=== PATIENT | female | born 1955 | race African-American/Black ===

== ENCOUNTER 2018-02-10 04:20 | Observation (INO) ==
[2018-02-10 05:23] LABS: Basophils % 0.4 % (0.0-0.8); Eosinophils # 0.1 10*3/uL (0.0-0.87); Eosinophils % 1.9 % (0.00-10.9); Hematocrit 35.2 VOL% (35.7-47.0); Hemoglobin 10.9 GM/DL (12.0-16.0); Immature Granulocytes % 0.3 %; Immature Granulocytes Absolute 0.02 #; Lymphocytes # 3.4 10*3/uL (1.4-4.0); Lymphocytes % 46.2 % (21.3-54.2); Mean Corpuscular Hemoglobin 23 PG (27-34); Mean Corpuscular Volume 74.1 FL (87-102); Monocytes # 0.3 10*3/uL (0.11-0.8); Monocytes % 4.2 % (1.7-12.7); Neutrophils # 3.4 10*3/uL (1.4-7.4); Platelet Count 186 T/CUMM (130-400); Red Blood Count 4.75 MC/CUMM (3.8-5.5); White Blood Count 7.3 T/CUMM (4-12)
[2018-02-10 05:51] LABS: Alanine Aminotransferase 17 U/L (13-56); Albumin 3.6 G/DL (3.4-5.0); Alkaline Phosphatase 97 U/L (45-117); Aspartate Amino Transferase 12 U/L (0-37); Blood Urea Nitrogen 14 MG/DL (7-18); Calcium 8.8 MG/DL (8.5-10.1); Glucose 128 MG/DL (74-106); Osmolality,Calculated 283.3 MOS/KG (273-304); Potassium 3.4 MMOL/L (3.5-5.1); Sodium 141 MMOL/L (136-145); Total Protein 7.3 G/DL (6.4-8.3); Troponin I Only < 0.015 NG/ML (0.00-0.045)
[2018-02-10] MEDS ORDERED: ENOXAPARIN 30 MG/0.3 ML SYRINGE SUBCUT STA (06:32)
[2018-02-10] MEDS ORDERED: ASPIRIN 325 MG TABLET PO STA (06:32)
[2018-02-10] MEDS ORDERED: ASPIRIN 325 MG TABLET ONE (06:33)
[2018-02-10] MEDS ORDERED: NITROGLYCERIN 2% OINT 1 INCH/GM PACK TOP ONE (06:33)
[2018-02-10] MEDS ORDERED: ENOXAPARIN 120 MG/0.8 ML SYRINGE SUBCUT ONE (06:34)
[2018-02-10] MEDS ORDERED: NITROGLYCERIN 2% OINT 1 INCH/GM PACK TOP STA (06:35)
[2018-02-10] MEDS ORDERED: ACETAMINOPHEN 325 MG TABLET PO PRN (07:34)
[2018-02-10] MEDS ORDERED: ONDANSETRON 4 MG/2 ML VIAL IV PRN (07:34)
[2018-02-10] MEDS ORDERED: DEXTROSE 50% 25 GM/50 ML VIAL IV PRN (07:34)
[2018-02-10] MEDS ORDERED: GLUCAGON 1 MG VIAL IM PRN (07:34)
[2018-02-10] MEDS ORDERED: ENOXAPARIN 40 MG/0.4 ML SYRINGE SUBCUT SCH (08:00)
[2018-02-10] MEDS: PANTOPRAZOLE 40 MG TABLET PO SCH (10:52)
[2018-02-10] MEDS: INSULIN LISPRO 100 UNIT/ML SUBCUT SCH ×3 (11:37→22:19)
[2018-02-10] MEDS ORDERED: CLORAZEPATE 7.5 MG TABLET PO ONE (22:00)
[2018-02-11 06:51] LABS: Basophils % 0.7 % (0.0-0.8); Eosinophils # 0.1 10*3/uL (0.0-0.87); Eosinophils % 2.5 % (0.00-10.9); Hematocrit 36.3 VOL% (35.7-47.0); Hemoglobin 11.3 GM/DL (12.0-16.0); Immature Granulocytes % 0.4 %; Immature Granulocytes Absolute 0.02 #; Lymphocytes # 2.8 10*3/uL (1.4-4.0); Lymphocytes % 49.9 % (21.3-54.2); Mean Corpuscular HGB Conc 31.1 GM/DL (32-36); Mean Corpuscular Hemoglobin 23 PG (27-34); Mean Corpuscular Volume 72.6 FL (87-102); Mean Platelet Volume 10.9 FL (9.6-12.0); Monocytes # 0.2 10*3/uL (0.11-0.8); Monocytes % 4.3 % (1.7-12.7); Neutrophils # 2.3 10*3/uL (1.4-7.4); Neutrophils % 42.2 % (38.7-73.9); Platelet Count 194 T/CUMM (130-400); Red Cell Distribution Width 15.3 % (9.3-17.3); White Blood Count 5.5 T/CUMM (4-12)
[2018-02-11 07:37] LABS: Calcium 8.9 MG/DL (8.5-10.1); Osmolality,Calculated 282.3 MOS/KG (273-304); Potassium 3.7 MMOL/L (3.5-5.1); Risk Ratio 4.98; Thyroid Stimulating Hormone 1.02 uIU/ml (0.358-3.74); VLDL CHOLESTEROL 59.8 MG/DL
[2018-02-11] MEDS ORDERED: ENOXAPARIN 40 MG/0.4 ML SYRINGE SUBCUT SCH (08:00)
[2018-02-11] MEDS ORDERED: traMADol 50 MG TABLET PO PRN (10:00)
[2018-02-11] MEDS ORDERED: ALBUTEROL 2.5 MG/3 ML NEB RESP TX PRN (10:00)
[2018-02-11] MEDS ORDERED: ASPIRIN EC 81 MG TABLET PO SCH (10:00)
[2018-02-11] MEDS ORDERED: DILTIAZEM CD 180 MG CAPSULE PO SCH (10:00)
[2018-02-11] MEDS: PANTOPRAZOLE 40 MG TABLET PO SCH (10:21)
[2018-02-11] MEDS: INSULIN LISPRO 100 UNIT/ML SUBCUT SCH ×2 (10:21→13:43)
[2018-02-11] MEDS ORDERED: MONTELUKAST 10 MG TABLET PO SCH (10:30)
[2018-02-11 13:18] VITALS: BP 189/87
[2018-02-11] MEDS ORDERED: glyBURIDE MICRONIZED 1.5 MG TABLET PO SCH (17:00)
[2018-02-11] MEDS ORDERED: ROSUVASTATIN 20 MG TABLET PO SCH (21:00)
[2018-02-11] MEDS ORDERED: PANTOPRAZOLE 40 MG TABLET PO SCH (21:00)
== END 2018-02-11 16:55 | disposition home or self-care (01) ==
LOC: N.EDINP 04:20 → N.ED 04:20 → N.4E 08:01
PROVIDERS: ADMIT Internal Medicine; ATTEND Internal Medicine

== ENCOUNTER 2019-12-01 11:05 | Inpatient (IN) ==
[2019-12-01] MEDS ORDERED: ASPIRIN 325 MG TABLET PO STA (11:59)
[2019-12-01 12:25] LABS: Basophils % 0.6 % (0.0-0.8); Eosinophils # 0.2 10*3/uL (0.0-0.87); Eosinophils % 3.9 % (0.00-10.9); Hematocrit 29.7 VOL% (35.7-47.0); Hemoglobin 8.6 GM/DL (12.0-16.0); Immature Granulocytes % 0.2 %; Immature Granulocytes Absolute 0.01 #; Lymphocytes # 1.8 10*3/uL (1.4-4.0); Lymphocytes % 38.4 % (21.3-54.2); Mean Corpuscular Volume 76.7 FL (87-102); Mean Platelet Volume 10.8 FL (9.6-12.0); Monocytes % 3.7 % (1.7-12.7); Neutrophils % 53.2 % (38.7-73.9); Platelet Count 199 T/CUMM (130-400); Red Blood Count 3.87 MC/CUMM (3.8-5.5); White Blood Count 4.6 T/CUMM (4-12)
[2019-12-01 13:01] LABS: Albumin 3.4 G/DL (3.4-5.0); Bilirubin,Total 0.6 MG/DL (0.2-1.0); Calcium 8.5 MG/DL (8.5-10.1); Osmolality,Calculated 284.5 MOS/KG (273-304); Total Protein 6.8 G/DL (6.4-8.3)
[2019-12-01] MEDS ORDERED: hydrALAZINE 20 MG/1 ML VIAL IV PRN (15:03)
[2019-12-01] MEDS ORDERED: DOCUSATE SODIUM 100 MG CAPSULE PO PRN (15:03)
[2019-12-01] MEDS ORDERED: DEXTROSE 10% 250 ML BAG IV PRN (15:03)
[2019-12-01] MEDS ORDERED: ACETAMINOPHEN 325 MG TABLET PO PRN (15:03)
[2019-12-01] MEDS ORDERED: ONDANSETRON 4 MG/2 ML VIAL IV PRN (15:03)
[2019-12-01] MEDS ORDERED: GLUCAGON 1 MG VIAL IM PRN (15:03)
[2019-12-01 15:29] LABS: INR 1.1; PT Patient Result 11.4 SECS (9.8-11.9); Partial Thromboplastin Time 32.4 SECS (23.9-33.8)
[2019-12-01 16:26] LABS: % Iron Saturation 20.8 % (18-50); Ferritin 93.6 ng/ml (8-252)
[2019-12-01 16:28] LABS: Folate 22.8 NG/ML (5.4-24.0); Vitamin B12 322 PG/ML (211-911)
[2019-12-01 16:31] LABS: Risk Ratio 5.26; Thyroid Stimulating Hormone 1.06 uIU/ml (0.358-3.74)
[2019-12-01 17:26] LABS: Basophils % 0.6 % (0.0-0.8); Eosinophils # 0.2 10*3/uL (0.0-0.87); Eosinophils % 3.5 % (0.00-10.9); Hematocrit 29.5 VOL% (35.7-47.0); Hemoglobin 8.8 GM/DL (12.0-16.0); Immature Granulocytes % 0.4 %; Immature Granulocytes Absolute 0.02 #; Lymphocytes % 40.4 % (21.3-54.2); Mean Corpuscular HGB Conc 29.8 GM/DL (32-36); Mean Corpuscular Volume 74.5 FL (87-102); Mean Platelet Volume 10.5 FL (9.6-12.0); Monocytes % 5.4 % (1.7-12.7); Neutrophils % 49.7 % (38.7-73.9); Platelet Count 198 T/CUMM (130-400); Red Blood Count 3.96 MC/CUMM (3.8-5.5); Red Cell Distribution Width 14.9 % (9.3-17.3); White Blood Count 4.8 T/CUMM (4-12)
[2019-12-01 17:26] LABS: Hemoglobin 8.7 GM/DL (12.0-16.0)
[2019-12-01] MEDS: INSULIN REGULAR 100 UNIT/ML SUBCUT SCH ×2 (18:05→20:38)
[2019-12-01] MEDS: PANTOPRAZOLE 40 MG TABLET PO SCH (20:35)
[2019-12-01] MEDS: ATORVASTATIN 20 MG TABLET PO SCH (20:35)
[2019-12-01] MEDS: HydrOXYzine PAMOATE 25 MG CAPSULE PO PRN (21:45)
[2019-12-01] MEDS: BACLOFEN 10 MG TABLET PO SCH (21:45)
[2019-12-01 23:50] LABS: Hematocrit 29.5 VOL% (35.7-47.0); Hemoglobin 8.8 GM/DL (12.0-16.0)
[2019-12-01 23:57] LABS: Apearance,Urine CLEAR (Clear); Bilirubin,Urine Negative (Negative); Blood, Urine Negative (Negative); Glucose,Urine (UA) Negative (Negative); Ketones,Urine Negative (Negative); Nitrite,Urine Negative (Negative); Protein,Urine Negative; RBC,Urine 2 /HPF (0-4); Squamous Epithelial Cell,Urine Occasional /HPF (0-10); Urine Color Straw (Yellow); Urine Urobilinogen < 2.0 EU/DL (0.2-1.0); WBC,Urine 1 /HPF (0-6)
[2019-12-02 07:05] LABS: Basophils # 0.1 10*3/uL (0.0-0.2); Eosinophils # 0.2 10*3/uL (0.0-0.87); Eosinophils % 3.6 % (0.00-10.9); Hematocrit 28.3 VOL% (35.7-47.0); Hemoglobin 8.7 GM/DL (12.0-16.0); Immature Granulocytes % 0.2 %; Immature Granulocytes Absolute 0.01 #; Lymphocytes # 2.2 10*3/uL (1.4-4.0); Lymphocytes % 43.8 % (21.3-54.2); Mean Corpuscular HGB Conc 30.7 GM/DL (32-36); Mean Corpuscular Volume 74.3 FL (87-102); Mean Platelet Volume 10.9 FL (9.6-12.0); Monocytes % 5.4 % (1.7-12.7); Platelet Count 195 T/CUMM (130-400); Red Blood Count 3.81 MC/CUMM (3.8-5.5); Red Cell Distribution Width 14.9 % (9.3-17.3)
[2019-12-02 07:23] LABS: Calcium 8.7 MG/DL (8.5-10.1); Osmolality,Calculated 282.3 MOS/KG (273-304)
[2019-12-02] MEDS: LOSARTAN 50 MG TABLET PO SCH (08:12)
[2019-12-02] MEDS: DILTIAZEM CD 180 MG CAPSULE PO SCH (08:12)
[2019-12-02 08:24] LABS: Sedimentation Rate-Westergren 41 MM/HR (0-30)
[2019-12-02] MEDS: INSULIN REGULAR 100 UNIT/ML SUBCUT SCH ×4 (08:31→20:53)
[2019-12-02] MEDS ORDERED: LOSARTAN 50 MG TABLET PO SCH (09:00)
[2019-12-02] MEDS ORDERED: propofoL 200 MG/20 ML VIAL IV ONE (09:00)
[2019-12-02] MEDS ORDERED: LIDOCAINE 2% 5 ML VIAL ONE (09:00)
[2019-12-02] MEDS: LACTATED RINGERS 1,000 ML IV SCH (09:37)
[2019-12-02 10:40] LABS: Hemoglobin A1 (Alkaline) 98.1 % (96.5-98.5); Hemoglobin A2 (Alkaline) 1.9 % (1.5-3.5)
[2019-12-02] MEDS: PANTOPRAZOLE 40 MG TABLET PO SCH ×2 (12:31→20:45)
[2019-12-02] MEDS: BACLOFEN 10 MG TABLET PO SCH ×2 (12:31→20:45)
[2019-12-02 13:36] LABS: INR 1.1; PT Patient Result 11.4 SECS (9.8-11.9)
[2019-12-02] MEDS: ATORVASTATIN 20 MG TABLET PO SCH (20:45)
[2019-12-02] MEDS: HydrOXYzine PAMOATE 25 MG CAPSULE PO PRN (20:53)
[2019-12-03 07:01] LABS: Basophils % 0.6 % (0.0-0.8); Eosinophils # 0.2 10*3/uL (0.0-0.87); Eosinophils % 3.7 % (0.00-10.9); Hematocrit 30.8 VOL% (35.7-47.0); Immature Granulocytes % 0.2 %; Immature Granulocytes Absolute 0.01 #; Lymphocytes # 2.1 10*3/uL (1.4-4.0); Lymphocytes % 38.7 % (21.3-54.2); Mean Corpuscular HGB Conc 29.2 GM/DL (32-36); Mean Corpuscular Volume 76.2 FL (87-102); Neutrophils % 51.8 % (38.7-73.9); Platelet Count 214 T/CUMM (130-400); Red Blood Count 4.04 MC/CUMM (3.8-5.5); Red Cell Distribution Width 14.8 % (9.3-17.3); White Blood Count 5.4 T/CUMM (4-12)
[2019-12-03 07:25] LABS: Calcium 8.7 MG/DL (8.5-10.1); Osmolality,Calculated 279.5 MOS/KG (273-304)
[2019-12-03] MEDS: INSULIN REGULAR 100 UNIT/ML SUBCUT SCH (08:08)
[2019-12-03 08:38] VITALS: BP 169/82
[2019-12-03] MEDS: DILTIAZEM CD 180 MG CAPSULE PO SCH (08:49)
[2019-12-03] MEDS: BACLOFEN 10 MG TABLET PO SCH (08:50)
[2019-12-03] MEDS: PANTOPRAZOLE 40 MG TABLET PO SCH (08:50)
[2019-12-03] MEDS: LOSARTAN 50 MG TABLET PO SCH (08:50)
[2019-12-03] MEDS: LACTATED RINGERS 1,000 ML IV SCH (11:03)
== END 2019-12-03 11:02 | disposition home or self-care (01) | DRG 357 ==
LOC: N.ED 11:05 → SUATTDRO 14:43 → N.EDINP 14:43 → N.TELEN 15:46
PROVIDERS: ADMIT Emergency Medicine; ATTEND Internal Medicine